=== PATIENT | female | born 1995 | race Caucasian/White ===

== ENCOUNTER → 2020-03-31 13:08 | Outpatient (BNVA) | payer OTHER, SELFPAY | PROVIDERS: Family Provider Family Medicine; Visit Provider Nurse Practitioner Family | DX: U07.1 COVID-19 (principal) | CPT/HCPCS: 87635 ==

== ENCOUNTER 2022-12-24 10:55 | Outpatient (CLI) | payer OTHER, SELFPAY ==
[2022-12-24 11:08] VITALS: BP 128/72; PULSE 102
[2022-12-24 11:23] VITALS: BP 123/71; PULSE 99
[2022-12-24 11:39] VITALS: BP 120/66; PULSE 92
[2022-12-24 11:41] VITALS: RESP 18
[2022-12-24 12:02] VITALS: BMI 27.4
== END 2022-12-24 11:45 | disposition home or self-care (01) ==
LOC: OPOB 10:56 → OBGYN 10:58
PROVIDERS: Family Provider Family Medicine; Visit Provider Family Medicine
DX: O16.9 Unspecified maternal hypertension, unspecified trimester (principal); Z3A.00 Weeks of gestation of pregnancy not specified
CPT/HCPCS: 99211

== ENCOUNTER 2023-01-14 12:55 | Outpatient (CLI) | payer OTHER, SELFPAY ==
[2023-01-14] VITALS (7 sets, daily range): BP systolic 108–122; BP diastolic 67–76; PULSE 96–105; RESP 17
[2023-01-14] MEDS: lactated ringers 1,000 ML 999 ML IV (13:59)
[2023-01-14 14:10] LABS: Basophils % 0.4 %; Eosinophils # 0.1 10^3/uL (0.0-0.8); Eosinophils % 1.4 %; Hematocrit 29.9 % (37.0-47.0); Hemoglobin 9.8 g/dL (11.5-15.3); Lymphocytes # 0.9 10^3/uL (0.8-4.8); Lymphocytes % 11.3 %; Mean Corpuscular HGB Conc 32.8 g/dL (30.0-36.0); Mean Corpuscular Hemoglobin 28.5 pg (28.0-34.0); Mean Corpuscular Volume 86.9 fl (81-99); Mean Platelet Volume 9.5 fL (7.4-10.4); Monocytes % 12.7 %; Neutrophils % 73.1 %; Nucleated Red Blood Cells % 0 %; Platelet Count 282 10^3/cmm (130-400); Red Blood Count 3.44 10^6/uL (4.1-5.3); Red Cell Distribution Width 12.1 % (12.1-15.1); White Blood Count 7.9 10^3/uL (4.0-10.0)
[2023-01-14 14:20] LABS: Bilirubin Urine Neg (Negative); Blood Urine Neg (Negative); Glucose Urine UA 1+ (Normal); Ketones Urine Negative (Negative); Leukocyte Esterase Urine Negative (Negative); Nitrate Urine Negative (Negative); Protein Urine Neg (Negative); Specific Gravity, Urine 1.015 (1.005-1.030); Urine Appearance Cloudy (CLEAR); Urine Color Yellow (Yellow); Urobilinogen Urine 4 mg/dL (Negative); pH Urine 8 (5-7)
[2023-01-14 14:22] LABS: Add Urine Culture? No; Bacteria Urine 3+ /hpf; Mucus Urine 1+ /hpf; RBC Urine 0-4 /hpf (0-2); Sulfosalicylic Acid Urine Negative (Negative); WBC Urine 0-4 /hpf (0-5)
[2023-01-14 14:29] LABS: Alanine Aminotransferase 16 U/L (0-33); Albumin Level 3.4 g/dL (3.5-5.2); Alkaline Phosphatase 76 U/L (35-105); Aspartate Amino Transferase 23 U/L (0-32); Blood Urea Nitrogen 6 mg/dL (6-20); Calcium 8.4 mg/dL (8.5-10.5); Carbon Dioxide 22 mmol/L (22-29); Chloride 105 mmol/L (98-107); Globulin 3.3 g/dL (1.3-4.6); Glomerular Filtration Rate 150.3 mL/min (90-130); Glucose 80 mg/dL (65-115); Osmolality Calculated 287 mOsm/kg (285-295); Sodium 140 mmol/L (136-145); Total Bilirubin 0.3 mg/dL (0.15-1.2); Total Protein 6.7 g/dL (6.6-8.7); Uric Acid 3.3 mg/dL (2.4-5.7)
[2023-01-14 14:51] LABS: Urine Creatinine 190 mg/dL (28-217)
[2023-01-14 14:53] LABS: UPRO/UCREAT Ratio 0.21 mg/mg CR; Urine Protein Random 40 mg/dL
== END 2023-01-14 15:32 | disposition home or self-care (01) ==
LOC: OPOB 12:59 → OBGYN 13:00
PROVIDERS: Family Provider Family Medicine; Visit Provider Family Medicine
DX: O26.899 Other specified pregnancy related conditions, unspecified trimester (principal); R60.9 Edema, unspecified; R25.2 Cramp and spasm; Z3A.00 Weeks of gestation of pregnancy not specified
CPT/HCPCS: 36415; 59025; 80053; 81001; 82570; 84156; 84550; 85025; 99211; J7120

== ENCOUNTER 2023-03-26 11:00 | Inpatient (IN) | payer OTHER, SELFPAY ==
[2023-03-26] VITALS (70 sets, daily range): BP systolic 95–210; BP diastolic 51–145; PULSE 72–160; RESP 18; TEMP 36.1–36.6; O2SAT 98–100; BMI 31.6
[2023-03-26] MEDS: lactated ringers 1,000 ML 999 ML IV (11:12)
[2023-03-26] MEDS: ampicillin 2,000 MG in sodium chloride 0.9% (plus) 50 ML 100 MG IV (11:12)
[2023-03-26 11:19] LABS: Basophils % 0.3 %; Eosinophils # 0.1 10^3/uL (0.0-0.8); Eosinophils % 0.5 %; Hemoglobin 9.6 g/dL (11.5-15.3); Lymphocytes # 1.3 10^3/uL (0.8-4.8); Lymphocytes % 9.7 %; Mean Corpuscular Hemoglobin 22.4 pg (28.0-34.0); Mean Corpuscular Volume 72.3 fl (81-99); Monocytes # 0.7 10^3/uL (0.2-0.9); Monocytes % 5.3 %; Neutrophils # 10.79 10^3/uL (1.8-7.7); Neutrophils % 83.8 %; Nucleated Red Blood Cells % 0 %; Platelet Count 369 10^3/cmm (130-400); Red Blood Count 4.29 10^6/uL (4.1-5.3); White Blood Count 12.9 10^3/uL (4.0-10.0)
[2023-03-26] MEDS: miSOPROStol 100 mcg tablet 25 MCG SUBLINGUAL (13:50)
[2023-03-26] MEDS: fentaNYL 50 mcg/mL INJ 2mL IVP (14:50)
[2023-03-26] MEDS: dextrose 5%-lactated ringers 1,000 ML 999 ML IV (14:55)
[2023-03-26] MEDS: ondansetron 2 mg/ML SDV 2 mL 4 MG IVP ×2 (15:15→20:25)
[2023-03-26] MEDS: ampicillin 1,000 MG in sodium chloride 0.9% (plus) 50 ML 100 MG IV ×2 (15:44→19:04)
--- NOTE | 2023-03-26 15:53 | ANES.PREANE2 ---
Pre-Anesthetic Assessment Height/Weight: Height 1.57 m Weight 78.471 kg Temp Pulse Resp BP Pulse Ox O2 Del Method 97.9 F 72 18 131/84 100 Room Air 03/26/23 13:11 03/26/23 15:52 03/26/23 14:50 03/26/23 15:52 03/26/23 15:49 03/26/23 11:00 labor epidural Was Beta Luis Manuel taken within 24 hours: N/A Was Clonidine taken within 24 hours: N/A Social No alcohol and No tobacco Exam alert, oriented x 3, clear to auscultation bilaterally and regular rate & rhythm Airway Submandibular: within normal limits Cervical ROM: within normal limits Mallampati: Class I History/ROS No significant history except as noted and No significant complaints Pulmonary None reported CV/HEM None reported reported to have hypertension early in , resolved None reported Hepatic None reported GI None reported Metabolic None reported Musc/skel Lower Back Pain Neuropsych None reported Anesthetic Plan ASA status: 2 Anesthesia: Anesthesia Evaluation and Regional (specify below) (epidural) Risk of > 500 ml blood loss (7ml/kg in children): No Medications/Allergies Home Medications Medication Instructions Recorded Confirmed Last Taken Type Vitamin 1 mg PO DIRECTED 01/14/23 1 Day Ago History ~01/13/23 Allergies Allergy/AdvReac Type Severity Reaction Status Date / Time No Known Allergies Allergy Verified 01/14/23 15:19 Current Medications Generic Name Dose Route Start Last Admin Trade Name Freq PRN Reason Stop Dose Admin Fentanyl 25 - 100 mcg 03/26/23 10:58 03/26/23 14:50 Fentanyl 50 Mcg/Ml Inj 2ml IVP 25 mcg Q1H PRN Administration SEVERE PAIN Dextrose/Lactated Ringer's 1,000 mls @ 125 mls/hr 03/26/23 11:00 03/26/23 15:47 Dextrose 5%-Lactated Ringers IV 125 mls/hr .Q8H RICHA Infusion Ampicillin Sodium 1,000 mg/ 50 mls @ 100 mls/hr 03/26/23 15:00 03/26/23 15:44 Sodium Chloride IV 100 mls/hr Q4H RICHA Administration Protocol Lactated Ringer's 1,000 mls @ 999 mls/hr 03/26/23 11:01 03/26/23 14:55 Lactated Ringers IV Infused .Q1H1M PRN Infusion See label comments Ondansetron HCl 4 mg 03/26/23 10:58 03/26/23 15:15 Ondansetron 2 Mg/Ml Sdv 2 Ml IVP 4 mg Q4H PRN Administration NAUSEA AND VOMITING PFSH Anesthesia Female Reproductive History : 1 Data Anesthesia 03/26/23 11:00 Short CBC 03/26/23 Range/Units 11:00 WBC 12.9 H (4.0-10.0) 10^3/uL Hgb 9.6 L (11.5-15.3) g/dL Hct 31.0 L (37.0-47.0) % MCV 72.3 L (81-99) fl Plt Count 369 (130-400) 10^3/cmm Neut % (Auto) 83.8 % Neut # (Auto) 10.79 H (1.8-7.7) 10^3/uL Cardiac Studies: No Data to Display
--- NOTE | 2023-03-26 15:55 | ANES.PROC ---
Anesthesia Procedures Procedure/Date: 03/26/23 labor epidural Epidural: Time Out Performed: Yes Consents Signed: Procedure Consent Consent: requested by attending/covering physician, from patient, risks and benefits reviewed and patient agrees to proceed Lumbar Level: L3-L4 Epidural position: sitting Epidural procedure: sterile prep of area, 1% lidocaine to numb the area, negative for paresthesia passed, test dose given, 1.5% xylocaine 1:200k epi, no systemic response, sterile dressing applied, L.U.D. no apparent complications and 0.2% Ropiavacaine @ mls/hr (10) Additional Comments: ÁNGEL at 6.5 cm. Dilated with 3 cc sterile saline. Negative test dose, catheter negative aspiration, passed easily without paresthesia, secured at 15 cm. Tolerated well
[2023-03-26] MEDS: lactated ringers 1,000 ML 125 ML IV (17:53)
--- NOTE | 2023-03-26 22:36 | PM.OPHPUD ---
Labor & Delivery H&P Update Date of Procedure: March 26, 2023 Date H&P Performed: 03/23/23 Changes to previous documentation: Contractions every 2 to 3 minutes. Admission Diagnosis: 27-year-old 1 at 40 weeks and 1 day estimated gestational age Planned procedure: Spontaneous vaginal delivery Other information: The patient is an otherwise healthy patient who presented to the hospital having contractions. Shortly after arriving, she had spontaneous rupture of membranes. After spontaneous rupture membranes, her contractions began to spaced out. Cytotec was placed sublingual. The patient began to progress with more consistent and painful contractions. Her has been relatively unremarkable. Her blood type is B+. Her antibody screen is negative. She was GBS positive, and has received 2 doses of ampicillin. She failed her 1 hour glucose screen but passed her 3-hour. She is rubella immune. The remainder of her infectious disease profile is within normal limits. Related Problem List Diagnoses (1) 40 weeks gestation of : I anticipate a routine vaginal delivery. (2) Positive GBS test: (3) Spontaneous rupture of membranes: A&P Assessment and plan (1) 40 weeks gestation of : Status: Acute (2) Positive GBS test: Status: Acute (3) Spontaneous rupture of membranes: Status: Acute
--- NOTE | 2023-03-26 23:07 | PM.DELIVERY ---
Delivery Note: Date of delivery: March 26, 2023 Pre-delivery diagnoses: 27-year-old 1 at 40 weeks estimated gestational age in active labor Post-delivery diagnoses: Status post spontaneous vaginal delivery Procedure: Spontaneous vaginal delivery Delivering Physician: Raghav Tyson Estimated blood loss (mL): 100 Pre-Delivery Course: The patient presented to the hospital complaining of contractions. She had spontaneous rupture membranes shortly thereafter. She was given Cytotec to augment her labor when her contractions began to space. An epidural was placed. She progressed to complete without difficulty. Delivery: DELIVERY: The patient progressed to complete without difficulty. She delivered a female with a weight of 8 pounds 7 ounces with Apgars of 5, 8. The baby was delivered from the MARIO position and placed on the mother's abdomen. While she initially had some good tone, after about 30 seconds her tone decreased. And the baby was brought to the warmer for further care. The cord was clamped and cut before she was brought to the warmer. There was no nuchal cord. Terminal meconium was noted. The placenta and 3 vessel cord were delivered intact shortly thereafter. The perineum and vaginal vault were carefully examined. There were superficial lacerations on both the anterior and posterior vaginal wall. None required repair. Both the mother and the baby were in stable condition. Post-Delivery Status: Good A&P Assessment and plan (1) Spontaneous vaginal delivery: I anticipate routine care. She hopes to breast-feed. Coding Level of Care Code Acute Code for Chg Fwd Diagnoses Spontaneous vaginal delivery O80
[2023-03-27] VITALS (17 sets, daily range): BP systolic 110–147; BP diastolic 66–86; PULSE 84–122; RESP 16–18; TEMP 36.6–36.7; O2SAT 93–98
[2023-03-27] MEDS: lanolin oint 7 gm 1 APPLIC TOPICAL (02:18)
[2023-03-27] MEDS: benzocaine-menthol 78 gm Canister 1 SPRAY TOPICAL (02:18)
--- NOTE | 2023-03-27 09:30 | P.DS_ITS ---
Discharge Providers LADLE HANDLER Date of Admission: 03/26/23 11:00 Date of Discharge: 03/27/23 Attending Provider at Admission: Raghav Tyson MD Attending Provider at Discharge: Raghav Tyson MD Diagnoses at Discharge Discharge Diagnosis (1) Spontaneous vaginal delivery: Status: Acute Reason for Visit Reason for Visit: Contractions Hospital Course Hospital Course The patient presented to the hospital having consistent contractions. Shortly after arrival she had rupture membranes. Her contractions began to space out. She was given Cytotec 25 mcg. An epidural was placed. She received GBS protocol. She progressed to complete and had an unremarkable delivery of a healthy female infant. She only had superficial tears. Her bleeding was within normal limits. Her pain was well controlled. She breast-fed well. There were no concerns. Information Peripartum Data: Delivery Method: Vaginal Physical Exam Narrative: The patient is alert. She appears comfortable. Her heart has a regular rate and rhythm with no murmurs appreciated. Lungs are clear to auscultation bilaterally. Her fundus is firm and below the umbilicus. Urinary Catheter Management: Rivas: Cath Placed During This Visit: yes Reason for Continuing Indwelling Catheter: Required Immobilization for Trauma or Surgery or Anesthesia Urinary Catheter Date of Insertion: 03/26/23 Urinary Catheter Time of Insertion: 16:04 Discharge Data Studies Completed and Pending Pending at discharge Category Date Time Status Hemagram Timed Lab 03/27/23 11:05 Uncollected Laboratory Results WBC 12.9 10^3/uL (4.0-10.0) H 03/26/23 11:00 RBC 4.29 10^6/uL (4.1-5.3) 03/26/23 11:00 Hgb 9.6 g/dL (11.5-15.3) L 03/26/23 11:00 Hct 31.0 % (37.0-47.0) L 03/26/23 11:00 MCV 72.3 fl (81-99) L 03/26/23 11:00 MCH 22.4 pg (28.0-34.0) L 03/26/23 11:00 MCHC 31.0 g/dL (30.0-36.0) 03/26/23 11:00 RDW 16.0 % (12.1-15.1) H 03/26/23 11:00 Plt Count 369 10^3/cmm (130-400) 03/26/23 11:00 MPV 10.0 fL (7.4-10.4) 03/26/23 11:00 Neut % (Auto) 83.8 % 03/26/23 11:00 Lymph % (Auto) 9.7 % 03/26/23 11:00 [place] % (Auto) 5.3 % 03/26/23 11:00 Eos % (Auto) 0.5 % 03/26/23 11:00 Baso % (Auto) 0.3 % 03/26/23 11:00 Neut # (Auto) 10.79 10^3/uL (1.8-7.7) H 03/26/23 11:00 Lymph # (Auto) 1.3 10^3/uL (0.8-4.8) 03/26/23 11:00 [place] # (Auto) 0.7 10^3/uL (0.2-0.9) 03/26/23 11:00 Eos # (Auto) 0.1 10^3/uL (0.0-0.8) 03/26/23 11:00 Baso # (Auto) 0.0 10^3/uL (0.0-0.1) 03/26/23 11:00 Nucleated RBC % (auto) 0 % 03/26/23 11:00 Nucleated RBCs # 0.0 /100WBC 03/26/23 11:00 Vitals Last Vital Signs Temp 97.9 F 03/26/23 20:46 Pulse 92 03/27/23 04:55 Resp 18 03/26/23 14:50 BP 136/81 03/27/23 04:55 Pulse Ox 98 03/27/23 04:55 O2 Del Method Room Air 03/27/23 04:55 Discharge Plan Discharge Patient Disposition: Home Condition: Stable Prescriptions: New ibuprofen 800 mg Tablet 800 mg PO TID Qty: 45 0RF Continued Vitamin 1 mg PO DIRECTED Discharge Orders: Discharge Order (Routine); Ordered 03/27/23 Ordered By: Raghav Tyson Referrals: Raghav Tyson MD [Physician] - 6 Weeks Discharge Diet: Usual diet Discharge Activity: Resume usual activity and Limit activity as instructed Patient Instructions: Opioid Safety Discharge Attestations LADLE HANDLER Time Spent in Discharge Care*: less than 30 min Coding Level of Care Code Acute Code for Chg Fwd Diagnoses Spontaneous vaginal delivery O80
[2023-03-27] MEDS: docusate sodium 100 mg Capsule PO (09:47)
[2023-03-27] MEDS: ibuprofen 800 mg tablet PO ×2 (09:47→15:23)
[2023-03-27] MEDS: prenatal vitamin Capsule 1 CAP PO (09:47)
[2023-03-27 11:15] LABS: Hematocrit 26.1 % (37.0-47.0); Mean Corpuscular HGB Conc 30.7 g/dL (30.0-36.0); Mean Corpuscular Hemoglobin 22.3 pg (28.0-34.0); Mean Corpuscular Volume 72.7 fl (81-99); Mean Platelet Volume 9.5 fL (7.4-10.4); Platelet Count 297 10^3/cmm (130-400); Red Blood Count 3.59 10^6/uL (4.1-5.3); Red Cell Distribution Width 16.1 % (12.1-15.1); White Blood Count 18.5 10^3/uL (4.0-10.0)
--- NOTE | 2023-03-28 08:36 | ANE.PACU2 ---
Inpatient post-anesthesia follow up: Airway intact: Yes Vital signs: Temperature 98.1 F Pulse Rate 84 Respiratory Rate 16 Blood Pressure 119/82 Pulse Oximetry 98 Oxygen Delivery Me thod Room Air Oxygen Flow Rate Fraction of Inspir ed Oxygen Hydration adequate: Yes Nausea and vomiting: No Pain level: 2 Mental status: Baseline
== END 2023-03-27 23:46 | disposition home or self-care (01) | DRG 806 ==
LOC: OPOB 11:13 → OBGYN 11:13
PROVIDERS: Admitting Provider Family Medicine; Visit Provider Family Medicine
DX: O48.0 Post-term pregnancy (principal); O71.4 Obstetric high vaginal laceration alone; Z37.0 Single live birth; Z3A.40 40 weeks gestation of pregnancy; O99.824 Streptococcus B carrier state complicating childbirth; O77.0 Labor and delivery complicated by meconium in amniotic fluid
CPT/HCPCS: 36415; 51702; 59025; 59409; 83986; 85025; 85027; 99211; J0290; J2405; J2795; J3010; J7040; J7120; J7121